=== PATIENT | female | born 1995 | race Caucasian/White ===

== ENCOUNTER 2016-08-22 09:03 | Emergency (ER) | payer MEDICAID ==
[2016-08-22 09:15] VITALS: BP 124/74
[2016-08-22] MEDS ORDERED: Sodium Chloride 0.9% 1,000 ML IV SCH (09:45)
--- NOTE | 2016-08-22 09:48 | EDM.PDOC ---
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 She has not had spotting. She thinks she is about 10 weeks preg. Onset: Today Duration: Hour(s): Location: Reports: Abdomen Associated Symptoms: Reports: No Other Symptoms, Other (pt usually vomits once or twice daily. 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 - Past Surgical History Female Surgical History: Reports: D&C Social & Family History - Tobacco Use Smoking Status *Q: Current Every Day Smoker Years of Tobacco use: 6 Packs/Tins Daily: 0.5 - Caffeine Use Caffeine Use: Reports: Soda - Alcohol Use Days Per Week of Alcohol Use: 0 - Recreational Drug Use Recreational Drug Use: No ED ROS GENERAL - Review of Systems Review Of Systems: See Below Constitutional: Reports: No Symptoms HEENT: Reports: No Symptoms Respiratory: Reports: No Symptoms Cardiovascular: Reports: No Symptoms Endocrine: Reports: No Symptoms GI/Abdominal: Reports: Other ( crampy lower abdomanal pain.) : Reports: No Symptoms Musculoskeletal: Reports: No Symptoms Skin: Reports: No Symptoms Neurological: Reports: No Symptoms Psychiatric: Reports: No Symptoms ED EXAM - Physical Exam Exam: See Below Text/Narrative:: pt arrived with pain in the lower abdoman. She is having crampy abdomanal pain. She has not had spotting. Exam Limited By: No Limitations General Appearance: Alert, Anxious, Mild Distress Ears: Normal TMs Nose: Normal Inspection Throat/Mouth: Normal Inspection Head: Atraumatic Neck: Normal Inspection Respiratory/Chest: No Respiratory Distress Cardiovascular: Regular Rate, Rhythm GI/Abdominal: Other ( cramping in the lower abdoman. no heart tones were heard. ) Rectal Exam: Deferred Extremities: Normal Inspection Neurological: Alert, Oriented, Other ( very upset. ) Course - Vital Signs Last Recorded V/S: Last Vital Signs Temp 36.8 C 08/22/16 09:16 Pulse 89 08/22/16 09:16 Resp 14 08/22/16 09:16 BP 124/74 08/22/16 09:16 Pulse Ox 98 08/22/16 09:16 - Orders/Labs/Meds Orders: Active Orders 24 hr Category Date Time Status OB 1st Tri Sgl 1st Gest [US] Stat Exams 08/22/16 09:41 Ordered OB Transvaginal [US] Stat Exams 08/22/16 09:41 Ordered Sodium Chloride 0.9% [Normal Saline] 1,000 ml Med 08/22/16 09:45 Active IV ASDIRECTED Medication Orders Sodium Chloride (Normal Saline) 1,000 mls @ 999 mls/hr IV ASDIRECTED [facility] Last Admin: 08/22/16 10:12 Dose: 999 mls/hr Labs: Laboratory Tests 08/22/16 08/22/16 08/22/16 Range/Units 09:50 09:50 09:54 WBC 11.3 H (4.5-11.0) K/uL RBC 4.50 (3.30-5.50) M/uL Hgb 12.7 (12.0-15.0) g/dL Hct 38.6 (36.0-48.0) % MCV 86 (80-98) fL MCH 28 (27-31) pg MCHC 33 (32-36) % Plt Count 228 (150-400) K/uL Neut % (Auto) 70 H (36-66) % Lymph % (Auto) 22 L (24-44) % [place] % (Auto) 7 H (2-6) % Eos % (Auto) 0 L (2-4) % Baso % (Auto) 0 (0-1) % Sodium 136 L (140-148) mmol/L Potassium 4.3 (3.6-5.2) mmol/L Chloride 102 (100-108) mmol/L Carbon Dioxide 29 (21-32) mmol/L Anion Gap 9.3 (5.0-14.0) mmol/L BUN 9 (7-18) mg/dL Creatinine 0.7 (0.6-1.0) mg/dL Est Cr Clr Drug Dosing 108.86 mL/min Estimated GFR (MDRD) > 60 (>60) Glucose 91 (74-106) mg/dL Calcium 9.0 (8.5-10.1) mg/dL Total Bilirubin 0.3 (0.2-1.0) mg/dL AST 17 (15-37) U/L ALT 17 (12-78) U/L Alkaline Phosphatase 59 (46-116) U/L Total Protein 7.4 (6.4-8.2) g/dL Albumin 3.4 (3.4-5.0) g/dL Globulin 4.0 H (2.3-3.5) g/dL Albumin/Globulin Ratio 0.9 L (1.2-2.2) HCG, Quant 6242 H (0-6) mIU/mL Urine Color Urine Appearance Urine pH (4.5-8.0) Ur Specific [place] (1.008-1.030) Urine Protein (NEGATIVE) mg/dL Urine Glucose (UA) (NEGATIVE) mg/dL Urine Ketones (NEGATIVE) mg/dL Urine Occult Blood (NEGATIVE) Urine Nitrite (NEGATIVE) Urine Bilirubin (NEGATIVE) Urine Urobilinogen (NORMAL) mg/dL Ur Leukocyte Esterase (NEGATIVE) Urine RBC (0-5) Urine WBC (0-5) Ur Epithelial Cells Amorphous Sediment Urine Bacteria Urine Mucus 08/22/16 Range/Units 10:59 WBC (4.5-11.0) K/uL RBC (3.30-5.50) M/uL Hgb (12.0-15.0) g/dL Hct (36.0-48.0) % MCV (80-98) fL MCH (27-31) pg MCHC (32-36) % Plt Count (150-400) K/uL Neut % (Auto) (36-66) % Lymph % (Auto) (24-44) % [place] % (Auto) (2-6) % Eos % (Auto) (2-4) % Baso % (Auto) (0-1) % Sodium (140-148) mmol/L Potassium (3.6-5.2) mmol/L Chloride (100-108) mmol/L Carbon Dioxide (21-32) mmol/L Anion Gap (5.0-14.0) mmol/L BUN (7-18) mg/dL Creatinine (0.6-1.0) mg/dL Est Cr Clr Drug Dosing mL/min Estimated GFR (MDRD) (>60) Glucose (74-106) mg/dL Calcium (8.5-10.1) mg/dL Total Bilirubin (0.2-1.0) mg/dL AST (15-37) U/L ALT (12-78) U/L Alkaline Phosphatase (46-116) U/L Total Protein (6.4-8.2) g/dL Albumin (3.4-5.0) g/dL Globulin (2.3-3.5) g/dL Albumin/Globulin Ratio (1.2-2.2) HCG, Quant (0-6) mIU/mL Urine Color Yellow Urine Appearance Clear Urine pH 7.0 (4.5-8.0) Ur Specific [place] 1.005 L (1.008-1.030) Urine Protein Negative (NEGATIVE) mg/dL Urine Glucose (UA) Normal (NEGATIVE) mg/dL Urine Ketones Negative (NEGATIVE) mg/dL Urine Occult Blood Negative (NEGATIVE) Urine Nitrite Negative (NEGATIVE) Urine Bilirubin Negative (NEGATIVE) Urine Urobilinogen Normal (NORMAL) mg/dL Ur Leukocyte Esterase Negative (NEGATIVE) Urine RBC 0-5 (0-5) Urine WBC 0-5 (0-5) Ur Epithelial Cells Few Amorphous Sediment Not seen Urine Bacteria Not seen Urine Mucus Not seen Meds: Medications Generic Name Dose Route Start Last Admin Trade Name Freq PRN Reason Stop Dose Admin Sodium Chloride 1,000 mls @ 999 mls/hr 08/22/16 09:45 08/22/16 10:12 Normal Saline IV 999 mls/hr ASDIRECTED [facility] Administration - Re-Assessments/Exams Free Text/Narrative Re-Assessment/Exam: 08/22/16 11:13 This is the second preg for the pt. The first she miscarried at about 6 weeks. Her us revealed only a preg that progressed to about 6 weeks. There is no heart activity. 08/22/16 11:15 Her Serum Hcg is only 6000 and should be about twice that. Departure - Departure Time of Disposition: 11:16 Disposition: Home, Self-Care 01 Condition: Fair Clinical Impression: Miscarriage, threatened, early - Discharge Information Forms: ED Department Discharge Care Plan Goals: Us shows a preg that progressed to 6 weeks with no heart tones,give pt empty arms book, appt with her provider Jalyn Lowe. in next 2-3 days, rtc if bleeding becomes heavy , norco 5/325 q6h prn for pain. - My Orders Last 24 Hours: My Active Orders 08/22/16 09:41 OB 1st Tri Sgl 1st Gest [US] Stat OB Transvaginal [US] Stat 08/22/16 09:45 Sodium Chloride 0.9% [Normal Saline] 1,000 ml IV ASDIRECTED - Assessment/Plan Last 24 Hours: My Active Orders 08/22/16 09:41 OB 1st Tri Sgl 1st Gest [US] Stat OB Transvaginal [US] Stat 08/22/16 09:45 Sodium Chloride 0.9% [Normal Saline] 1,000 ml IV ASDIRECTED
--- NOTE | 2016-08-22 11:46 | US ---
OB ultrasound. Findings: Comparison: Report 07/25/2016. Findings: [place]-rump length measures 5 mm. This would correlate to 6 weeks 3 days gestation. No feta l heart tones. No color Doppler as well of the heart. Enlarged gestational sac measuring up to 25 mm . Ovaries are unremarkable. Impression: 1. No heart tones. [place]-rump length at 5 mm. Findings most suggestive of a demise.
== END 2016-08-22 11:42 | disposition home or self-care (01) ==
LOC: JP.ED 09:03
DX: O20.0 Threatened abortion (principal); Z3A.10 10 weeks gestation of pregnancy; O99.331 Smoking (tobacco) complicating pregnancy, first trimester; F17.210 Nicotine dependence, cigarettes, uncomplicated; Z79.899 Other long term (current) drug therapy; Z91.09 Other allergy status, other than to drugs and biological substances
CPT/HCPCS: 36415; 76801; 76817; 80053; 81001; 84702; 85025; 96360; 96361; 99284; J7040

== ENCOUNTER 2017-05-31 16:32 | Emergency (ER) | payer MEDICAID ==
--- NOTE | 2017-05-31 18:13 | EDM.PDOC ---
ED HPI GENERAL MEDICAL PROBLEM - General Chief Complaint: Chest Pain Stated Complaint: CHEST PAIN Time Seen by Provider: 05/31/17 18:07 Source of Information: Reports: Patient, RN Notes Reviewed History Limitations: Reports: No Limitations - History of Present Illness INITIAL COMMENTS - FREE TEXT/NARRATIVE: 21-year-old female presents to the emergency department day complaint of chest pain, she states he's had chest pain for 2 days yesterday was constant today is intermittent she rates pain 4 out of 10 try Tylenol with no relief was nauseated and diaphoretic yesterday but none of those symptoms today no history of heart issues Left Chest Pain Score (Numeric/FACES): 4 - Related Data Allergies Allergy/AdvReac Type Severity Reaction Status Date / Time nickel Allergy Rash Verified 10/19/14 23:14 Home Meds: Home Meds Albuterol [Ventolin HFA] 2 puff PO QID PRN 10/19/14 [History] Past Medical History Respiratory History: Reports: Bronchitis, Recurrent 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: , 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 - Past Surgical History Female Surgical History: Reports: D&C Social & Family History - Tobacco Use Smoking Status *Q: Current Every Day Smoker Years of Tobacco use: 4 Packs/Tins Daily: 0.5 - Caffeine Use Caffeine Use: Reports: Coffee, Soda, Tea - Alcohol Use Days Per Week of Alcohol Use: 0 - Recreational Drug Use Recreational Drug Use: No ED ROS GENERAL - Review of Systems Review Of Systems: See Below Constitutional: Reports: Diaphoresis HEENT: Reports: No Symptoms Respiratory: Denies: Shortness of Breath Cardiovascular: Reports: Chest Pain GI/Abdominal: Reports: Nausea : Reports: No Symptoms Musculoskeletal: Reports: No Symptoms Skin: Reports: No Symptoms Neurological: Reports: No Symptoms ED EXAM, GENERAL - Physical Exam Exam: See Below Exam Limited By: No Limitations General Appearance: Alert, WD/WN, No Apparent Distress Eye Exam: Bilateral Eye: Normal Inspection Head: Atraumatic, Normocephalic Neck: Normal Inspection, Supple, Non-Tender, Full Range of Motion Respiratory/Chest: No Respiratory Distress, Lungs Clear, Normal Breath Sounds, No Accessory Muscle Use, Chest Non-Tender Cardiovascular: Regular Rate, Rhythm, No Murmur GI/Abdominal: Soft, Non-Tender Course - Vital Signs Last Recorded V/S: Last Vital Signs Temp 98.9 F 05/31/17 16:53 Pulse 72 05/31/17 19:02 Resp 13 05/31/17 19:02 BP 118/62 05/31/17 19:02 Pulse Ox 98 05/31/17 19:02 - Orders/Labs/Meds Orders: Active Orders 24 hr Category Date Time Status Cardiac Monitoring [RC] .As Directed Care 05/31/17 18:11 Active EKG Documentation Completion [RC] ASDIRECTED Care 05/31/17 18:11 Active Chest 2V [CR] Stat Exams 05/31/17 18:11 Taken EKG 12 Lead [EK] Stat Ther 05/31/17 18:11 Ordered Labs: Laboratory Tests 05/31/17 05/31/17 Range/Units 18:11 18:11 WBC 11.8 H (4.5-11.0) K/uL RBC 4.39 (3.30-5.50) M/uL Hgb 11.3 L (12.0-15.0) g/dL Hct 35.0 L (36.0-48.0) % MCV 80 (80-98) fL MCH 26 L (27-31) pg MCHC 32 (32-36) % Plt Count 266 (150-400) K/uL Neut % (Auto) 60 (36-66) % Lymph % (Auto) 30 (24-44) % [place] % (Auto) 7 H (2-6) % Eos % (Auto) 2 (2-4) % Baso % (Auto) 0 (0-1) % Sodium 141 (140-148) mmol/L Potassium 4.1 (3.6-5.2) mmol/L Chloride 104 (100-108) mmol/L Carbon Dioxide 27 (21-32) mmol/L Anion Gap 10.1 (5.0-14.0) mmol/L BUN 14 D (7-18) mg/dL Creatinine 0.7 (0.6-1.0) mg/dL Est Cr Clr Drug Dosing 112.47 mL/min Estimated GFR (MDRD) > 60 (>60) Glucose 89 (74-106) mg/dL Calcium 8.8 (8.5-10.1) mg/dL Total Bilirubin 0.1 L D (0.2-1.0) mg/dL AST 14 L (15-37) U/L ALT 22 (12-78) U/L Alkaline Phosphatase 83 (46-116) U/L Troponin I < 0.017 (0.000-0.056) ng/mL Total Protein 6.9 (6.4-8.2) g/dL Albumin 3.4 (3.4-5.0) g/dL Globulin 3.5 (2.3-3.5) g/dL Albumin/Globulin Ratio 1.0 L (1.2-2.2) Lipase 169 (73-393) U/L Departure - Departure Time of Disposition: 19:16 Disposition: Home, Self-Care 01 Condition: Good Clinical Impression: Chest wall pain Referrals: PCP,None [Primary Care Provider] - Forms: ED Department Discharge Additional Instructions: Try nonsteroidal anti-inflammatories as needed for pain control, Please followup with your primary care provider in 3-5 days if not better, please call return to the emergency department with worsening of symptoms. - My Orders Last 24 Hours: My Active Orders 05/31/17 18:11 Cardiac Monitoring [RC] .As Directed EKG Documentation Completion [RC] ASDIRECTED Chest 2V [CR] Stat EKG 12 Lead [EK] Stat - Assessment/Plan Last 24 Hours: My Active Orders 05/31/17 18:11 Cardiac Monitoring [RC] .As Directed EKG Documentation Completion [RC] ASDIRECTED Chest 2V [CR] Stat EKG 12 Lead [EK] Stat Plan: Assessment Acuity = acute Site and laterality = chest wall pain Etiology = unclear etiology Manifestations = none Location of injury = Home Lab values = CBC, CMP, troponin, EKG reveals sinus rhythm no ST elevations or depressions she does have a prolonged [place] interval consistent with first-degree block, chest x-ray I did review films myself I cannot appreciate any acute process, the official read from radiology is pending Plan Recommend nonsteroidal anti-inflammatories follow-up primary care 3-5 days for reevaluation if not better This note was dictated using [employer] voice recognition software please call with any questions on syntax or jann.
[2017-05-31 19:02] VITALS: BP 118/62
--- NOTE | 2017-06-01 11:21 | CR ---
Chest 2V HISTORY: No Clinical Info FINDINGS: Heart size within normal limits. Pulmonary vasculature within normal limits. No evidence fo r focal consolidation or cardiopulmonary process. IMPRESSION: No radiographic evidence for acute cardiopulmonary process.
== END 2017-05-31 19:32 | disposition home or self-care (01) ==
LOC: JP.ED 16:32
DX: R07.89 Other chest pain (principal); F17.210 Nicotine dependence, cigarettes, uncomplicated; Z91.048 Other nonmedicinal substance allergy status
CPT/HCPCS: 36415; 71046; 71046-26; 80053; 83690; 84484; 85025; 93005; 99285-25

== ENCOUNTER 2017-09-03 18:15 | Emergency (ER) | payer MEDICAID ==
--- NOTE | 2017-09-03 19:34 | EDM.PDOC ---
ED HPI GENERAL MEDICAL PROBLEM - General Chief Complaint: Abdominal Pain Stated Complaint: R ABDOMINAL PAIN Time Seen by Provider: 09/03/17 19:05 Source of Information: Reports: Patient History Limitations: Reports: No Limitations - History of Present Illness INITIAL COMMENTS - FREE TEXT/NARRATIVE: 21 yo female present with 24 hour hx of right sided ABD pain. initially umbilical pain last evening progressed to right upper quad pain. eating and drinking normally. denies nausea. did have one episode of diarrhea this AM but last BM was soft and solid prior to arrival. LMP was 2 days ago and light after 2 months without. has taken multiple home preg all neg. afebrile. 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 Musculoskeletal History: Reports: Fracture Neurological History: Reports: Headaches, Chronic - Infectious Disease History Infectious Disease History: Reports: Chicken Pox - Past Surgical History HEENT Surgical History: Reports: Oral Surgery Female Surgical History: Reports: D&C Social & Family History - Tobacco Use Smoking Status *Q: Current Every Day Smoker Years of Tobacco use: 5 Packs/Tins Daily: 1 - Caffeine Use Caffeine Use: Reports: Soda - Recreational Drug Use Recreational Drug Use: No ED ROS GENERAL - Review of Systems Review Of Systems: See Below Constitutional: Denies: Fever, Chills, Malaise Respiratory: Denies: Shortness of Breath, Wheezing Cardiovascular: Denies: Chest Pain GI/Abdominal: Reports: Abdominal Pain, Diarrhea. Denies: Anorexia, Decreased Appetite, Nausea, Vomiting Skin: Denies: Rash ED EXAM, GI/ABD - Physical Exam Exam: See Below Exam Limited By: No Limitations General Appearance: Alert, WD/WN, No Apparent Distress Neck: Normal Inspection, Supple, Non-Tender, Full Range of Motion Respiratory/Chest: No Respiratory Distress, Lungs Clear, Normal Breath Sounds, No Accessory Muscle Use, Chest Non-Tender. No: Crackles, Rhonchi, Wheezing Cardiovascular: Regular Rate, Rhythm, No Edema GI/Abdominal Exam: Normal Bowel Sounds (right sided), Soft, Tender Psychiatric: Normal Affect, Normal Mood Skin Exam: Warm, Dry, Intact. No: Rash Course - Vital Signs Last Recorded V/S: Last Vital Signs Temp 35.9 C 09/03/17 21:32 Pulse 68 09/03/17 21:32 Resp 17 09/03/17 21:32 BP 129/67 09/03/17 21:32 Pulse Ox 97 09/03/17 21:32 - Orders/Labs/Meds Orders: Active Orders 24 hr Category Date Time Status Abdomen Pelvis w Cont [CT] Stat Exams 09/03/17 20:23 Taken Iopamidol [Isovue-300 (61%)] Med 09/03/17 20:30 Active 100 ml IV . DIRECTED Sodium Chloride 0.9% [Normal Saline] 1,000 ml Med 09/03/17 20:30 Active IV ASDIRECTED Sodium Chloride 0.9% [Normal Saline] 100 ml Med 09/03/17 20:30 Active IV ASDIRECTED Medication Orders Sodium Chloride (Normal Saline) 1,000 mls @ 500 mls/hr IV ASDIRECTED [facility] Last Admin: 09/03/17 21:25 Dose: 500 mls/hr Sodium Chloride (Normal Saline) 100 mls @ 3 mls/sec IV ASDIRECTED [facility] Last Admin: 09/03/17 21:09 Dose: 3 mls/sec Iopamidol (Isovue-300 (61%)) 100 ml IV . [facility]ED [facility] Last Admin: 09/03/17 21:09 Dose: 100 ml Labs: Laboratory Tests 09/03/17 09/03/17 09/03/17 Range/Units 19:38 19:38 19:38 WBC 12.9 H (4.5-11.0) K/uL RBC 4.42 (3.30-5.50) M/uL Hgb 11.7 L (12.0-15.0) g/dL Hct 36.0 (36.0-48.0) % MCV 81 (80-98) fL MCH 27 (27-31) pg MCHC 33 (32-36) % Plt Count 235 (150-400) K/uL Neut % (Auto) 62 (36-66) % Lymph % (Auto) 27 (24-44) % [place] % (Auto) 7 H (2-6) % Eos % (Auto) 3 (2-4) % Baso % (Auto) 0 (0-1) % Sodium 138 L (140-148) mmol/L Potassium 3.8 (3.6-5.2) mmol/L Chloride 103 (100-108) mmol/L Carbon Dioxide 28 (21-32) mmol/L Anion Gap 10.8 (5.0-14.0) mmol/L BUN 12 (7-18) mg/dL Creatinine 0.7 (0.6-1.0) mg/dL Est Cr Clr Drug Dosing 112.47 mL/min Estimated GFR (MDRD) > 60 (>60) Glucose 136 H (74-106) mg/dL Calcium 8.7 (8.5-10.1) mg/dL Total Bilirubin 0.2 D (0.2-1.0) mg/dL AST 14 L (15-37) U/L ALT 24 (12-78) U/L Alkaline Phosphatase 81 (46-116) U/L Total Protein 6.5 (6.4-8.2) g/dL Albumin 3.0 L (3.4-5.0) g/dL Globulin 3.5 (2.3-3.5) g/dL Albumin/Globulin Ratio 0.9 L (1.2-2.2) HCG, Qual Negative Urine Color Urine Appearance Urine pH (4.5-8.0) Ur Specific [place] (1.008-1.030) Urine Protein (NEGATIVE) mg/dL Urine Glucose (UA) (NEGATIVE) mg/dL Urine Ketones (NEGATIVE) mg/dL Urine Occult Blood (NEGATIVE) Urine Nitrite (NEGATIVE) Urine Bilirubin (NEGATIVE) Urine Urobilinogen (NORMAL) mg/dL Ur Leukocyte Esterase (NEGATIVE) Urine RBC (0-5) Urine WBC (0-5) Ur Epithelial Cells Amorphous Sediment Urine Bacteria Urine Mucus 09/03/17 Range/Units 20:39 WBC (4.5-11.0) K/uL RBC (3.30-5.50) M/uL Hgb (12.0-15.0) g/dL Hct (36.0-48.0) % MCV (80-98) fL MCH (27-31) pg MCHC (32-36) % Plt Count (150-400) K/uL Neut % (Auto) (36-66) % Lymph % (Auto) (24-44) % [place] % (Auto) (2-6) % Eos % (Auto) (2-4) % Baso % (Auto) (0-1) % Sodium (140-148) mmol/L Potassium (3.6-5.2) mmol/L Chloride (100-108) mmol/L Carbon Dioxide (21-32) mmol/L Anion Gap (5.0-14.0) mmol/L BUN (7-18) mg/dL Creatinine (0.6-1.0) mg/dL Est Cr Clr Drug Dosing mL/min Estimated GFR (MDRD) (>60) Glucose (74-106) mg/dL Calcium (8.5-10.1) mg/dL Total Bilirubin (0.2-1.0) mg/dL AST (15-37) U/L ALT (12-78) U/L Alkaline Phosphatase (46-116) U/L Total Protein (6.4-8.2) g/dL Albumin (3.4-5.0) g/dL Globulin (2.3-3.5) g/dL Albumin/Globulin Ratio (1.2-2.2) HCG, Qual Urine Color Yellow Urine Appearance Clear Urine pH 6.0 (4.5-8.0) Ur Specific [place] 1.025 (1.008-1.030) Urine Protein Negative (NEGATIVE) mg/dL Urine Glucose (UA) Normal (NEGATIVE) mg/dL Urine Ketones Negative (NEGATIVE) mg/dL Urine Occult Blood Negative (NEGATIVE) Urine Nitrite Negative (NEGATIVE) Urine Bilirubin Negative (NEGATIVE) Urine Urobilinogen Normal (NORMAL) mg/dL Ur Leukocyte Esterase Negative (NEGATIVE) Urine RBC 0-5 (0-5) Urine WBC 0-5 (0-5) Ur Epithelial Cells Moderate Amorphous Sediment Few Urine Bacteria Rare Urine Mucus Few Meds: Medications Generic Name Dose Route Start Last Admin Trade Name Freq PRN Reason Stop Dose Admin Sodium Chloride 1,000 mls @ 500 mls/hr 09/03/17 20:30 09/03/17 21:25 Normal Saline IV 500 mls/hr ASDIRECTED [facility] Administration Sodium Chloride 100 mls @ 3 mls/sec 09/03/17 20:30 09/03/17 21:09 Normal Saline IV 3 mls/sec ASDIRECTED [facility] Administration Iopamidol 100 ml 09/03/17 20:30 09/03/17 21:09 Isovue-300 (61%) IV 100 ml . DIRECTED [facility] Administration Discontinued Medications Generic Name Dose Route Start Last Admin Trade Name Caryl PRN Reason Stop Dose Admin Ketorolac Tromethamine 30 mg 09/03/17 22:11 09/03/17 22:21 Toradol IVPUSH 09/03/17 22:12 30 mg ONETIME ONE Administration Morphine Sulfate 1 mg 09/03/17 20:24 09/03/17 20:42 Morphine IVPUSH 09/03/17 20:25 1 mg ONETIME ONE Administration Morphine Sulfate 1 mg 09/03/17 22:08 09/03/17 22:21 Morphine IVPUSH 09/03/17 22:09 1 mg ONETIME ONE Administration Ondansetron HCl 4 mg 09/03/17 20:24 09/03/17 20:42 Zofran IVPUSH 09/03/17 20:25 4 mg ONETIME ONE Administration - Re-Assessments/Exams Free Text/Narrative Re-Assessment/Exam: 09/03/17 22:46 CT scan normal. pain improved but not relieved IV pain medication. Departure - Departure Time of Disposition: 22:46 Disposition: Home, Self-Care 01 Condition: Good Clinical Impression: Gastroenteritis, RUQ abdominal pain - Discharge Information Instructions: Abdominal Pain, Adult, [id number] Referrals: Portia Irene MD [Primary Care Provider] - Forms: ED Department Discharge Additional Instructions: rest advance diet as tolerated follow-up with primary care or return to ER with new or worsening symptoms - My Orders Last 24 Hours: My Active Orders 09/03/17 20:23 Abdomen Pelvis w Cont [CT] Stat 09/03/17 20:30 Iopamidol [Isovue-300 (61%)] 100 ml IV . DIRECTED Sodium Chloride 0.9% [Normal Saline] 1,000 ml IV ASDIRECTED Sodium Chloride 0.9% [Normal Saline] 100 ml IV ASDIRECTED - Assessment/Plan Last 24 Hours: My Active Orders 09/03/17 20:23 Abdomen Pelvis w Cont [CT] Stat 09/03/17 20:30 Iopamidol [Isovue-300 (61%)] 100 ml IV . DIRECTED Sodium Chloride 0.9% [Normal Saline] 1,000 ml IV ASDIRECTED Sodium Chloride 0.9% [Normal Saline] 100 ml IV ASDIRECTED
[2017-09-03] MEDS ORDERED: Morphine 2 MG/ML Syringe IVPUSH ONE ×2 (20:24→22:08)
[2017-09-03] MEDS ORDERED: Ondansetron 4 MG/2 ML SDV IVPUSH ONE (20:24)
[2017-09-03] MEDS ORDERED: Iopamidol 612 MG/ML 100 ML Bottle IV SCH (20:30)
[2017-09-03] MEDS ORDERED: Sodium Chloride 0.9% 1,000 ML IV SCH (20:30)
[2017-09-03] MEDS ORDERED: Sodium Chloride 0.9% 100 ML IV SCH (20:30)
[2017-09-03 21:34] VITALS: BP 129/67
[2017-09-03] MEDS ORDERED: Ketorolac 30 MG/ML SDV IVPUSH ONE (22:11)
== END 2017-09-03 22:59 | disposition home or self-care (01) ==
LOC: JP.ED 18:15
DX: K52.9 Noninfective gastroenteritis and colitis, unspecified (principal); F17.210 Nicotine dependence, cigarettes, uncomplicated; Z91.048 Other nonmedicinal substance allergy status
CPT/HCPCS: 36415; 74177; 80053; 81001; 84703; 85025; 96374; 96375; 96376; 99284; J1885; J2270; J2405; J7030; Q9967

== ENCOUNTER 2018-03-25 10:03 | Emergency (ER) | payer MEDICAID ==
[2018-03-25 10:22] VITALS: BP 131/76
--- NOTE | 2018-03-25 10:55 | EDM.PDOC ---
ED HPI GENERAL MEDICAL PROBLEM - General Chief Complaint: Respiratory Problem Stated Complaint: CHEST CONGESTION Time Seen by Provider: 03/25/18 10:51 Source of Information: Reports: Patient History Limitations: Reports: No Limitations - History of Present Illness INITIAL COMMENTS - FREE TEXT/NARRATIVE: pt has been ill for thepast 2-3 days. She spiked a temp to 101 this am. She has had chills and has had alot of chest congestion Onset: Other ( last 2-3 days. ) Duration: Hour(s): Location: Reports: Chest, Other (pt has a sore throat. 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 Musculoskeletal History: Reports: Fracture Neurological History: Reports: Headaches, Chronic - Infectious Disease History Infectious Disease History: Reports: Chicken Pox - Past Surgical History HEENT Surgical History: Reports: Oral Surgery Female Surgical History: Reports: D&C Social & Family History - Tobacco Use Smoking Status *Q: Current Every Day Smoker Years of Tobacco use: 5 Packs/Tins Daily: 0.5 - Caffeine Use Caffeine Use: Reports: Coffee, Soda, Tea - Recreational Drug Use Recreational Drug Use: No ED ROS GENERAL - Review of Systems Review Of Systems: See Below Constitutional: Reports: Fever, Chills, Weakness HEENT: Reports: Throat Pain Respiratory: Reports: Cough, Other (pt is having marked coughing spasms and is raising yellow to green sputum. ) Cardiovascular: Reports: No Symptoms Endocrine: Reports: No Symptoms GI/Abdominal: Reports: No Symptoms, Other (pt did cough until she vomited this am. She did have a temp of 102 this am. ) : Reports: No Symptoms Musculoskeletal: Reports: No Symptoms Skin: Reports: No Symptoms Neurological: Reports: No Symptoms ED EXAM, GENERAL - Physical Exam Exam: See Below Free Text/Narrative:: pt arrived with sob, cough and raises alot of yellow sputum.She is having marked coughing spasms. Exam Limited By: No Limitations General Appearance: Alert, Anxious, Mild Distress Ears: Normal TMs Nose: Normal Inspection Throat/Mouth: Normal Inspection Head: Atraumatic Neck: Normal Inspection Respiratory/Chest: No Respiratory Distress, Rhonchi, Wheezing Cardiovascular: Regular Rate, Rhythm GI/Abdominal: Soft, Non-Tender (Female) Exam: Deferred Rectal (Female) Exam: Deferred Back Exam: Normal Inspection Extremities: Normal Inspection Neurological: Alert, Oriented, Normal Cognition Course - Vital Signs Last Recorded V/S: Last Vital Signs Temp 36.5 C 03/25/18 10:20 Pulse 94 03/25/18 10:20 Resp 18 03/25/18 10:20 BP 131/76 03/25/18 10:20 Pulse Ox 97 03/25/18 10:20 - Orders/Labs/Meds Orders: Active Orders 24 hr Category Date Time Status RT Aerosol Therapy [RC] ASDIRECTED Care 03/25/18 11:23 Active Chest 2V [CR] Stat Exams 03/25/18 11:22 Ordered CULTURE STREP A CONFIRMATION [] Stat Lab 03/25/18 10:52 Results STREP SCRN A RAPID W CULT CONF [] Stat Lab 03/25/18 10:52 Results Labs: Laboratory Tests 03/25/18 Range/Units 10:50 WBC 9.3 (4.5-11.0) K/uL RBC 4.83 (3.30-5.50) M/uL Hgb 12.9 (12.0-15.0) g/dL Hct 39.7 (36.0-48.0) % MCV 82 (80-98) fL MCH 27 (27-31) pg MCHC 33 (32-36) % Plt Count 225 (150-400) K/uL Neut % (Auto) 77 H (36-66) % Lymph % (Auto) 12 L (24-44) % [place] % (Auto) 10 H (2-6) % Eos % (Auto) 0 L (2-4) % Baso % (Auto) 0 (0-1) % Meds: Medications Discontinued Medications Generic Name Dose Route Start Last Admin Trade Name Freq PRN Reason Stop Dose Admin Albuterol 2.5 mg 03/25/18 11:23 03/25/18 11:32 Proventil Neb Soln NEB 03/25/18 11:24 2.5 mg ONETIME ONE Administration - Re-Assessments/Exams Free Text/Narrative Re-Assessment/Exam: 03/25/18 12:26 pt had a neg strept and neg influ. Her wbc was not markedly elevated. She had a chest xray which did not show a infiltrate. Departure - Departure Time of Disposition: 12:10 Disposition: Home, Self-Care 01 Condition: Fair Clinical Impression: Bronchitis - Discharge Information Instructions: Acute Bronchitis, Adult, [id number] Referrals: PCP,None [Primary Care Provider] - Forms: ED Department Discharge Care Plan Goals: pudh fluids, no work for the next 2 days. use albuterol inhaler that she has at home qid, cool mist humidifier, zithromax 500mg now and then 250 for 6 days, robitussin ac 1-2 tsp q6h prn for cough. - My Orders Last 24 Hours: My Active Orders 03/25/18 10:52 CULTURE STREP A CONFIRMATION [RM] Stat STREP SCRN A RAPID W CULT CONF [RM] Stat 03/25/18 11:22 Chest 2V [CR] Stat 03/25/18 11:23 RT Aerosol Therapy [RC] ASDIRECTED - Assessment/Plan Last 24 Hours: My Active Orders 03/25/18 10:52 CULTURE STREP A CONFIRMATION [RM] Stat STREP SCRN A RAPID W CULT CONF [RM] Stat 03/25/18 11:22 Chest 2V [CR] Stat 03/25/18 11:23 RT Aerosol Therapy [RC] ASDIRECTED
[2018-03-25] MEDS: Albuterol 0.083% 2.5 MG/3 ML Neb Soln NEB ONE (11:32)
== END 2018-03-25 12:32 | disposition home or self-care (01) ==
LOC: JP.ED 10:03
DX: J40 Bronchitis, not specified as acute or chronic (principal); F17.210 Nicotine dependence, cigarettes, uncomplicated; Z91.048 Other nonmedicinal substance allergy status
CPT/HCPCS: 36415; 71046; 85025; 87081; 87430; 87804; 87804-59; 94640; 99285-25

== ENCOUNTER 2018-10-15 20:48 | Emergency (ER) | payer MEDICAID ==
[2018-10-15 21:21] VITALS: BP 135/83
[2018-10-15] MEDS ORDERED: Ibuprofen 600 MG Tab PO ONE (21:47)
--- NOTE | 2018-10-15 21:49 | EDM.PDOC ---
ED HPI GENERAL MEDICAL PROBLEM - General Stated Complaint: RI EAR Time Seen by Provider: 10/15/18 21:43 Source of Information: Reports: Patient History Limitations: Reports: No Limitations - History of Present Illness INITIAL COMMENTS - FREE TEXT/NARRATIVE: pt arrived with pain in the rt ear. She was baptized yesterday with a full emersion. Onset: Today, Other (pt started having pain in the ear today and also pain in front of the ear. ) Duration: Hour(s): Location: Reports: Face Associated Symptoms: Reports: Other ( pain in the rt ear. 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 Musculoskeletal History: Reports: Fracture Neurological History: Reports: Headaches, Chronic - Infectious Disease History Infectious Disease History: Reports: Chicken Pox - Past Surgical History HEENT Surgical History: Reports: Oral Surgery Female Surgical History: Reports: D&C Social & Family History - Caffeine Use Caffeine Use: Reports: Coffee, Soda, Tea ED ROS ENT - Review of Systems Review Of Systems: See Below Constitutional: Reports: No Symptoms HEENT: Reports: Ear Discharge, Ear Pain Respiratory: Reports: No Symptoms Cardiovascular: Reports: No Symptoms Endocrine: Reports: No Symptoms GI/Abdominal: Reports: No Symptoms : Reports: No Symptoms Musculoskeletal: Reports: No Symptoms Skin: Reports: No Symptoms ED EXAM, ENT - Physical Exam Exam: See Below Text/Narrative:: pt arrived with pain in the rt ear and pain in front of the rt ear. She had water in the ear from when she was baptized and she had a full emersion. Exam Limited By: No Limitations General Appearance: Alert, Anxious, Mild Distress Ears: Other ( there is pus like material in the canal, the canal is red, the drum reveals mild redness. ) Nose: Normal Inspection Mouth/Throat: Normal Inspection Head: Atraumatic, Other (pain in the tnj area) Neck: Normal Inspection Respiratory/Chest: No Respiratory Distress Cardiovascular: Regular Rate, Rhythm GI/Abdominal: Non-Tender (Female) Exam: Deferred Rectal (Female) Exam: Deferred Back: Normal Inspection Extremities: Normal Inspection Neurological: Alert, Oriented, Normal Cognition Course - Vital Signs Last Recorded V/S: Last Vital Signs Temp 36.2 C 10/15/18 21:20 Pulse 90 10/15/18 21:20 Resp 18 10/15/18 21:20 BP 135/83 10/15/18 21:20 Pulse Ox 98 10/15/18 21:20 - Orders/Labs/Meds Meds: Medications Discontinued Medications Generic Name Dose Route Start Last Admin Trade Name Freq PRN Reason Stop Dose Admin Ibuprofen 600 mg 10/15/18 21:47 Motrin PO 10/15/18 21:48 ONETIME ONE Departure - Departure Time of Disposition: 21:44 Disposition: Home, Self-Care 01 Condition: Fair Clinical Impression: Otitis media, Otitis externa - Discharge Information Referrals: PCP,None [Primary Care Provider] - Care Plan Goals: motrin 600mg q6h prn for pain, corticosporin ear drops tid, amoxicillin 500mg tid. recheck if not improving.
== END 2018-10-15 22:21 | disposition home or self-care (01) ==
LOC: JP.ED 20:48
DX: H66.91 Otitis media, unspecified, right ear (principal); H60.91 Unspecified otitis externa, right ear; J45.909 Unspecified asthma, uncomplicated; Z91.048 Other nonmedicinal substance allergy status; Z79.899 Other long term (current) drug therapy
CPT/HCPCS: 99282; A9270

== ENCOUNTER 2020-05-28 20:10 | Emergency (ER) | payer OTHER, MEDICAID ==
[2020-05-28 20:24] VITALS: BP 145/77; PULSE 86
[2020-05-28] MEDS ORDERED: Methocarbamol 500 MG Tab PO ONE (21:03)
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
== END 2020-05-28 21:18 | disposition home or self-care (01) ==
LOC: JP.ED 20:10
DX: S16.1XXA Strain of muscle, fascia and tendon at neck level, initial encounter (principal); S00.03XA Contusion of scalp, initial encounter; M25.511 Pain in right shoulder; J45.909 Unspecified asthma, uncomplicated; Z72.0 Tobacco use; Z79.899 Other long term (current) drug therapy; Z91.048 Other nonmedicinal substance allergy status; V49.49XA Driver injured in collision with other motor vehicles in traffic accident, initial encounter; Y92.410 Unspecified street and highway as the place of occurrence of the external cause
CPT/HCPCS: 99283; A9270

== ENCOUNTER 2021-02-07 12:18 | Emergency (ER) | payer MEDICAID, OTHER ==
--- NOTE | 2021-02-07 14:23 | EDM.PDOC ---
ED HPI GENERAL MEDICAL PROBLEM - General Chief Complaint: Headache Stated Complaint: MIGRAINE Time Seen by Provider: 02/07/21 14:22 Source of Information: Reports: Patient History Limitations: Reports: No Limitations - History of Present Illness INITIAL COMMENTS - FREE TEXT/NARRATIVE: pt arrived with a 6 day history of a headache over the top of her head. She has been nauseated but has not vomited. She has not been diagnosed with a migraine in the past. S. She has been lite sensitive. Onset: Gradual, Other ( Pt has had a headache for about 6 days. She does have a history of headaches that just go away with tylenol. ) Duration: Hour(s): Location: Reports: Head Associated Symptoms: Reports: No Other Symptoms Headache Pain Score (Numeric/FACES): 9 - Related Data Allergies Allergy/AdvReac Type Severity Reaction Status Date / Time nickel Allergy Rash Verified 02/07/21 13:36 Home Meds: Home Meds Albuterol [Ventolin HFA] 2 puff PO QID PRN 10/19/14 [History] methocarbamoL [Methocarbamol] 750 mg PO QID PRN #40 tablet 05/28/20 [Rx] metFORMIN [Glucophage] 500 tab PO DAILY 02/07/21 [History] Past Medical History - Past Health History Medical/Surgical History: Denies Medical/Surgical History HEENT History: Reports: Impaired Vision Respiratory History: Reports: Asthma, Bronchitis, Recurrent Other 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: , 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 Musculoskeletal History: Reports: Fracture Neurological History: Reports: Headaches, Chronic Endocrine/Metabolic History: Reports: Obesity/BMI 30+ - Infectious Disease History Infectious Disease History: Reports: Chicken Pox - Past Surgical History HEENT Surgical History: Reports: Oral Surgery Female Surgical History: Reports: D&C Social & Family History - Tobacco Use Tobacco Use Status *Q: Light Tobacco User Years of Tobacco use: 10 Packs/Tins Daily: 0.5 - Caffeine Use Caffeine Use: Reports: Coffee, Soda - Recreational Drug Use Recreational Drug Use: No ED ROS GENERAL - Review of Systems Review Of Systems: See Below Constitutional: Reports: No Symptoms HEENT: Reports: No Symptoms Respiratory: Reports: No Symptoms Cardiovascular: Reports: No Symptoms Endocrine: Reports: No Symptoms GI/Abdominal: Reports: No Symptoms : Reports: No Symptoms Musculoskeletal: Reports: Other ( neck tension) - Physical Exam Exam: See Below Text/Narrative:: pt arrived with aheadache which has been going on for about 6 days. This is the worse headache she has had. Exam Limited By: No Limitations General Appearance: Alert, Anxious, Other (pupils equal and reactive. ) Ears: Normal TMs Nose: Normal Inspection Throat/Mouth: Normal Inspection Head Exam: Atraumatic Neck: Normal Inspection Respiratory/Chest: No Respiratory Distress Cardiovascular: Regular Rate, Rhythm GI/Abdominal: Soft, Non-Tender (Female) Exam: Deferred Rectal (Female) Exam: Deferred Neuro Exam (Abbreviated): Alert, Oriented, Normal Cognition Back Exam: Normal Inspection Extremities: Normal Inspection Psychiatric: Anxious Course - Vital Signs Last Recorded V/S: Last Vital Signs Temp 36.8 C 02/07/21 13:35 Pulse 79 02/07/21 13:35 Resp 15 02/07/21 13:35 BP 132/80 02/07/21 13:35 Pulse Ox 99 02/07/21 13:35 - Orders/Labs/Meds Orders: Active Orders 24 hr Category Date Time Status Sodium Chloride 0.9% [Normal Saline] 1,000 ml Med 02/07/21 14:30 Active IV ASDIRECTED Medication Orders Sodium Chloride (Normal Saline) 1,000 mls @ 999 mls/hr IV ASDIRECTED TULIO Last Admin: 02/07/21 14:33 Dose: 999 mls/hr Documented by: SOPHIA Meds: Medications Generic Name Dose Route Start Last Admin Trade Name Freq PRN Reason Stop Dose Admin Sodium Chloride 1,000 mls @ 999 mls/hr 02/07/21 14:30 02/07/21 14:33 Normal Saline IV 999 mls/hr ASDIRECTED TULIO Administration Discontinued Medications Generic Name Dose Route Start Last Admin Trade Name Freq PRN Reason Stop Dose Admin Diphenhydramine HCl 50 mg 02/07/21 14:26 02/07/21 14:38 Diphenhydramine 50 Mg/Ml Sdv IVPUSH 02/07/21 14:27 50 mg ONETIME ONE Administration Hydromorphone HCl 0.5 mg 02/07/21 15:32 Hydromorphone 0.5 Mg/0.5 Ml Syringe IVPUSH 02/07/21 15:33 ONETIME ONE Ketorolac Tromethamine 30 mg 02/07/21 14:25 02/07/21 14:42 Ketorolac 30 Mg/Ml Sdv IVPUSH 02/07/21 14:26 30 mg ONETIME ONE Administration Prochlorperazine Edisylate 10 mg 02/07/21 14:25 02/07/21 14:39 Prochlorperazine 10 Mg/2 Ml Sdv IVPUSH 02/07/21 14:26 10 mg ONETIME ONE Administration - Re-Assessments/Exams Free Text/Narrative Re-Assessment/Exam: 02/07/21 15:24 pt had a cat scan of the head which was normal. 02/07/21 15:34 pt was given torodol, compazine, benadryl and did respond to that. Departure - Departure Time of Disposition: 15:34 Disposition: Home, Self-Care 01 Condition: Fair Clinical Impression: Vascular headache - Discharge Information Referrals: Shanthi Babin PA-C [Primary Care Provider] - Forms: ED Department Discharge Care Plan Goals: low activity. sleep if possible. See own Dr and discuss the possibility of a migraine diagnosis. Sepsis Event Note (ED) - Evaluation Sepsis Screening Result: No Definite Risk - Focused Exam Vital Signs: Vital Signs Temp Pulse Resp BP Pulse Ox 02/07/21 13:35 36.8 C 79 15 132/80 99 02/07/21 13:24 36.8 C 79 15 132/80 99 - My Orders Last 24 Hours: My Active Orders 02/07/21 14:30 Sodium Chloride 0.9% [Normal Saline] 1,000 ml IV ASDIRECTED - Assessment/Plan Last 24 Hours: My Active Orders 02/07/21 14:30 Sodium Chloride 0.9% [Normal Saline] 1,000 ml IV ASDIRECTED
[2021-02-07] MEDS ORDERED: Prochlorperazine 10 MG/2 ML SDV IVPUSH ONE (14:25)
[2021-02-07] MEDS ORDERED: Ketorolac 30 MG/ML SDV IVPUSH ONE (14:25)
[2021-02-07] MEDS ORDERED: diphenhydrAMINE 50 MG/ML SDV IVPUSH ONE (14:26)
[2021-02-07] MEDS ORDERED: Sodium Chloride 0.9% 1,000 ML IV SCH (14:30)
--- NOTE | 2021-02-07 15:16 | CRLCT ---
For Patients: As a result of the Century Cures Act, medical imaging exams and procedure reports are released immediately into your electronic medical record. You may view this report before your referring provider. If you have questions, please contact your health care provider. INDICATION: Headache COMPARISON: None TECHNIQUE: CT examination of the head was performed as axial sections without intravenous contrast. Images were obtained from the vertex of the skull through the skull base. Please note that all CT scans at this facility use dose modulation, iterative reconstruction, and/or weight-based dosing when appropriate to reduce radiation dose to as low as reasonably achievable. FINDINGS: The brain shows no sign of mass lesion, mass effect, hemorrhage, or edema. The ventricles and sulci are normal in appearance for the patient`s age. The visualized portions of the orbits are normal in appearance. The osseous structures are normal in their appearance with no sign of abnormality in the skull base or calvarium. IMPRESSION: Normal unenhanced head CT. Please note that all CT scans at this facility use dose modulation, iterative reconstruction, and/or weight-based dosing when appropriate to reduce radiation dose to as low as reasonably achievable. Dictated by Ankit Ziegler MD @ 02/07/2021 3:14:41 PM (Electronically Signed)
[2021-02-07] MEDS ORDERED: HYDROmorphone 0.5 MG/0.5 ML Syringe IVPUSH ONE (15:32)
[2021-02-07 15:51] VITALS: BP 145/78; PULSE 85
== END 2021-02-07 16:03 | disposition home or self-care (01) ==
LOC: JP.ED 12:18
DX: G44.1 Vascular headache, not elsewhere classified (principal); J45.909 Unspecified asthma, uncomplicated; F17.210 Nicotine dependence, cigarettes, uncomplicated; Z88.8 Allergy status to other drugs, medicaments and biological substances; Z79.84 Long term (current) use of oral hypoglycemic drugs; Z79.899 Other long term (current) drug therapy
CPT/HCPCS: 70450; 96374; 96375; 99284; J0780; J1170; J1200; J1885; J7030

== ENCOUNTER 2021-09-11 19:08 | Emergency (ER) | payer BC, MEDICAID ==
[2021-09-11 20:38] VITALS: BP 135/82; PULSE 96
[2021-09-11] MEDS ORDERED: Cefdinir 300 MG Cap PO ONE (21:07)
== END 2021-09-11 21:28 | disposition home or self-care (01) ==
LOC: JP.ED 19:08
DX: H66.93 Otitis media, unspecified, bilateral (principal); H60.93 Unspecified otitis externa, bilateral; F17.210 Nicotine dependence, cigarettes, uncomplicated; E66.9 Obesity, unspecified; Z68.30 Body mass index [BMI] 30.0-30.9, adult; Z91.048 Other nonmedicinal substance allergy status; Z79.899 Other long term (current) drug therapy; Z79.84 Long term (current) use of oral hypoglycemic drugs
CPT/HCPCS: 99281; 99282; A9270

== ENCOUNTER 2022-02-03 13:30 | Emergency (ER) | payer OTHER, BC ==
[2022-02-03 14:16] VITALS: BP 156/91; PULSE 110
[2022-02-03] MEDS ORDERED: Ketorolac 30 MG/ML SDV IM ONE (14:26)
== END 2022-02-03 15:52 | disposition home or self-care (01) ==
LOC: JP.ED 13:30
DX: G44.319 Acute post-traumatic headache, not intractable (principal); M25.511 Pain in right shoulder; M25.561 Pain in right knee; M54.2 Cervicalgia; M25.551 Pain in right hip; M25.521 Pain in right elbow; E66.9 Obesity, unspecified; Z68.42 Body mass index [BMI] 45.0-49.9, adult; Z91.048 Other nonmedicinal substance allergy status; Z79.899 Other long term (current) drug therapy; Z79.84 Long term (current) use of oral hypoglycemic drugs; V49.50XA Passenger injured in collision with unspecified motor vehicles in traffic accident, initial encounter; Y92.410 Unspecified street and highway as the place of occurrence of the external cause
CPT/HCPCS: 70450; 72125; 73030; 73070; 73502; 73560; 76377; 96372; 99284; J1885

== ENCOUNTER 2022-07-09 20:00 | Emergency (ER) | payer BC ==
[2022-07-09 20:13] VITALS: BP 141/82
[2022-07-09] MEDS ORDERED: Albuterol/Ipratropium 3.0-0.5 MG/3 ML Neb Soln NEB ONE (20:22)
[2022-07-09 20:33] LABS: BASOPHILS ABSOLUTE AUTO 0.03 K/uL (0.00-0.10); BASOPHILS PERCENT AUTO 0.3 % (0.1-1.3); HEMATOCRIT 36.7 % (34.3-46.0); HEMOGLOBIN 12.3 g/dL (11.2-15.5); IMMATURE GRAN ABSOLUTE AUTO 0.06 K/uL (0.00-0.23); IMMATURE GRAN PERCENT AUTO 0.5 % (0.0-0.7); LYMPHOCYTES ABSOLUTE AUTO 3.76 K/uL (0.8-3.3); LYMPHOCYTES PERCENT AUTO 32.8 % (11.4-47.7); MEAN CORPUSCULAR HEMOGLOBIN 28.2 pg (31.6-35.5); MEAN CORPUSCULAR HGB CONC 33.5 g/dL (31.6-35.5); MEAN CORPUSCULAR VOLUME 84.2 fL (81.4-99.0); MONOCYTES ABSOLUTE AUTO 0.88 K/uL (0.20-0.90); MONOCYTES PERCENT AUTO 7.7 % (3.3-12.6); NEUTROPHILS ABSOLUTE AUTO 6.73 K/uL (1.0-7.6); NEUTROPHILS PERCENT AUTO 58.7 % (40.0-78.1); PLATELET COUNT,PLT 243 K/uL (130-375); RED BLOOD CELL COUNT 4.36 M/uL (3.77-5.24); WHITE BLOOD CELL COUNT,WBC 11.5 K/uL (3.2-11.0)
[2022-07-09 20:54] LABS: A/G RATIO 0.9 (1.2-2.2); ALANINE AMINOTRANSFERASE,ALT 29 U/L (12-78); ALBUMIN 3.3 g/dL (3.4-5.0); ALKALINE PHOSPHATASE 85 U/L (46-116); ASPARTATE AMNIOTRANSFERASE,AST 18 U/L (15-37); BILIRUBIN TOTAL 0.4 mg/dL (0.2-1.0); BLOOD UREA NITROGEN,BUN 12 mg/dL (7-18); C-REACTIVE PROTEIN 2.17 mg/dL (0.0-0.3); CALCIUM 8.8 mg/dL (8.5-10.1); CARBON DIOXIDE,CO2 26 mmol/L (21-32); CHLORIDE,CL 101 mmol/L (100-108); CREATININE 0.7 mg/dL (0.6-1.0); EST CRCL DRUG DOSING (CG) 107.67 mL/min; ESTIMATED GFR 121 mL/min (>60); GLUCOSE RANDOM 107 mg/dL (74-106); POTASSIUM,K 3.7 mmol/L (3.6-5.2); PROTEIN TOTAL,TP 7.1 g/dL (6.4-8.2); SODIUM,NA 136 mmol/L (140-148)
[2022-07-09 21:02] LABS: ANION GAP 12.7 mmol/L (5.0-14.0)
[2022-07-09 21:05] VITALS: PULSE 94
== END 2022-07-09 21:25 | disposition home or self-care (01) ==
LOC: JP.ED 20:00
DX: J20.8 Acute bronchitis due to other specified organisms (principal); E66.9 Obesity, unspecified; J45.909 Unspecified asthma, uncomplicated; Z88.8 Allergy status to other drugs, medicaments and biological substances; Z79.84 Long term (current) use of oral hypoglycemic drugs; Z68.34 Body mass index [BMI] 34.0-34.9, adult
CPT/HCPCS: 36415; 71046; 71046-26; 80053; 85025; 86140; 94640; 99285; J7620

== ENCOUNTER 2022-08-09 05:28 | Day surgery (SDC) | payer BC ==
[2022-08-09 05:55] LABS: HEMATOCRIT 37.2 % (34.3-46.0); HEMOGLOBIN 12.5 g/dL (11.2-15.5); MEAN CORPUSCULAR HEMOGLOBIN 28.3 pg (31.6-35.5); MEAN CORPUSCULAR HGB CONC 33.6 g/dL (31.6-35.5); MEAN CORPUSCULAR VOLUME 84.4 fL (81.4-99.0); RED BLOOD CELL COUNT 4.41 M/uL (3.77-5.24); WHITE BLOOD CELL COUNT,WBC 11.6 K/uL (3.2-11.0)
[2022-08-09] MEDS ORDERED: Dextrose 5%-Lactated Ringers 1,000 ML IV SCH (06:00)
[2022-08-09 06:16] LABS: A/G RATIO 0.8 (1.2-2.2); ALANINE AMINOTRANSFERASE,ALT 27 U/L (12-78); ALBUMIN 3.2 g/dL (3.4-5.0); ALKALINE PHOSPHATASE 67 U/L (46-116); ASPARTATE AMNIOTRANSFERASE,AST 17 U/L (15-37); BILIRUBIN TOTAL 0.6 mg/dL (0.2-1.0); BLOOD UREA NITROGEN,BUN 12 mg/dL (7-18); CALCIUM 8.7 mg/dL (8.5-10.1); CARBON DIOXIDE,CO2 26 mmol/L (21-32); CHLORIDE,CL 102 mmol/L (100-108); CREATININE 0.6 mg/dL (0.6-1.0); EST CRCL DRUG DOSING (CG) 125.61 mL/min; ESTIMATED GFR 125 mL/min (>60); GLUCOSE RANDOM 95 mg/dL (74-106); MAGNESIUM 1.9 mg/dL (1.8-2.4); PHOSPHORUS 3.8 mg/dL (2.5-4.9); POTASSIUM,K 3.8 mmol/L (3.6-5.2); PROTEIN TOTAL,TP 7.1 g/dL (6.4-8.2); SODIUM,NA 138 mmol/L (140-148)
[2022-08-09] MEDS ORDERED: cefOXitin 2 GM in Sodium Chloride 0.9% 50 ML IV ONE (06:30)
[2022-08-09] MEDS ORDERED: Indocyanine Green 25 MG SDV IV ONE (06:30)
[2022-08-09] MEDS ORDERED: Albuterol/Ipratropium 3.0-0.5 MG/3 ML Neb Soln NEB ONE (06:30)
[2022-08-09 06:48] LABS: ANION GAP 13.8 mmol/L (5.0-14.0)
[2022-08-09] MEDS ORDERED: Lidocaine 1% with EPINEPHrine 1:100,000 50 ML MDV ONE (06:48)
[2022-08-09] MEDS ORDERED: Bupivacaine 0.5% 50 ML MDV ONE (06:48)
[2022-08-09] MEDS ORDERED: Rocuronium 50 MG/5 ML Vial ONE (06:57)
[2022-08-09] MEDS ORDERED: fentaNYL 250 MCG/5 ML SDV ONE ×2 (06:57→07:36)
[2022-08-09] MEDS ORDERED: Ondansetron 4 MG/2 ML SDV ONE (06:57)
[2022-08-09] MEDS ORDERED: Dexamethasone 4 MG/ML SDV ONE (06:57)
[2022-08-09] MEDS ORDERED: Neostigmine Methylsulfate 1 MG/ML 5 ML Syringe ONE (06:57)
[2022-08-09] MEDS ORDERED: Succinylcholine 200 MG/10 ML MDV ONE (06:57)
[2022-08-09] MEDS ORDERED: Propofol 200 MG/20 ML SDV ONE (06:57)
[2022-08-09] MEDS ORDERED: Glycopyrrolate 0.2 MG/ML 5 ML MDV ONE (06:57)
[2022-08-09] MEDS ORDERED: Ketamine 500 MG/5 ML MDV IV SCH (07:30)
[2022-08-09] MEDS ORDERED: Ketamine 17 MG in Sodium Chloride 0.9% 19.83 ML IV SCH (07:30)
[2022-08-09] MEDS ORDERED: Lactated Ringers 1,000 ML ONE (08:17)
[2022-08-09] MEDS ORDERED: hydrOXYzine HCl 50 MG/ML SDV IM ONE (09:11)
[2022-08-09] MEDS ORDERED: HYDROmorphone 0.5 MG/0.5 ML Syringe IVPUSH PRN (09:40)
[2022-08-09 10:56] VITALS: BP 122/65; PULSE 98
[2022-08-09] MEDS ORDERED: HYDROmorphone 2 MG Tab PO PRN (11:15)
== END 2022-08-09 11:50 ==
LOC: JP.SDS 05:28 → UNDOADMIN 05:28 → JP.SDSSCHI 05:28 → EDSTATUS 08:00 → UNDODISIN 11:50 → JP.SDS 11:50
PROVIDERS: ATTEND Surgery
DX: K81.1 Chronic cholecystitis (principal); J44.9 Chronic obstructive pulmonary disease, unspecified; F17.200 Nicotine dependence, unspecified, uncomplicated; Z91.048 Other nonmedicinal substance allergy status
CPT/HCPCS: 36415; 47562; 80053; 83735; 84100; 84703; 85027; 88304; 94640; A9270; J0131; J0171; J0330; J0694; J1100; J1170; J2405; J2704; J2710; J2795; J3010; J3410; J3490; J7120; J7121; J7620

== ENCOUNTER 2023-08-11 08:04 | Emergency (ER) | payer BC ==
[2023-08-11 08:11] VITALS: BP 140/85; PULSE 99
== END 2023-08-11 09:37 | disposition home or self-care (01) ==
LOC: JP.ED 08:04
DX: M25.561 Pain in right knee (principal); F17.210 Nicotine dependence, cigarettes, uncomplicated; K21.9 Gastro-esophageal reflux disease without esophagitis; J45.909 Unspecified asthma, uncomplicated; Z91.048 Other nonmedicinal substance allergy status; Z79.51 Long term (current) use of inhaled steroids; Z79.899 Other long term (current) drug therapy; Z79.84 Long term (current) use of oral hypoglycemic drugs; Z86.16 Personal history of COVID-19; Z90.49 Acquired absence of other specified parts of digestive tract
CPT/HCPCS: 73562-RT; 99283

== ENCOUNTER 2024-05-25 23:27 | Emergency (ER) | payer BC ==
[2024-05-26 00:22] VITALS: BP 139/75; PULSE 83
[2024-05-26] MEDS: Aspirin 81 MG Tab.Chew PO ONE (00:29)
[2024-05-26 00:33] LABS: BASOPHILS ABSOLUTE AUTO 0.05 K/uL (0.00-0.10); BASOPHILS PERCENT AUTO 0.4 % (0.1-1.3); HEMATOCRIT 36.1 % (34.3-46.0); HEMOGLOBIN 11.7 g/dL (11.2-15.5); IMMATURE GRAN ABSOLUTE AUTO 0.05 K/uL (0.00-0.23); IMMATURE GRAN PERCENT AUTO 0.4 % (0.0-0.7); LYMPHOCYTES ABSOLUTE AUTO 3.64 K/uL (0.8-3.3); LYMPHOCYTES PERCENT AUTO 28.9 % (11.4-47.7); MEAN CORPUSCULAR HEMOGLOBIN 27.5 pg (31.6-35.5); MEAN CORPUSCULAR HGB CONC 32.4 g/dL (31.6-35.5); MEAN CORPUSCULAR VOLUME 84.9 fL (81.4-99.0); MONOCYTES ABSOLUTE AUTO 0.97 K/uL (0.20-0.90); MONOCYTES PERCENT AUTO 7.7 % (3.3-12.6); NEUTROPHILS ABSOLUTE AUTO 7.87 K/uL (1.0-7.6); NEUTROPHILS PERCENT AUTO 62.6 % (40.0-78.1); PLATELET COUNT,PLT 241 K/uL (130-375); RED BLOOD CELL COUNT 4.25 M/uL (3.77-5.24); WHITE BLOOD CELL COUNT,WBC 12.6 K/uL (3.2-11.0)
[2024-05-26 00:55] LABS: A/G RATIO 0.9 (1.2-2.2); ALANINE AMINOTRANSFERASE,ALT 21 U/L (12-78); ALBUMIN 3.1 g/dL (3.4-5.0); ALKALINE PHOSPHATASE 81 U/L (46-116); ANION GAP 9.3 mmol/L (5.0-14.0); ASPARTATE AMNIOTRANSFERASE,AST 12 U/L (15-37); BILIRUBIN TOTAL 0.3 mg/dL (0.2-1.0); BLOOD UREA NITROGEN,BUN 11 mg/dL (7-18); CALCIUM 9.1 mg/dL (8.5-10.1); CARBON DIOXIDE,CO2 28 mmol/L (21-32); CHLORIDE,CL 104 mmol/L (100-108); CREATININE 0.7 mg/dL (0.6-1.0); EST CRCL DRUG DOSING (CG) 105.74 mL/min; ESTIMATED GFR 119 mL/min (>60); GLUCOSE RANDOM 141 mg/dL (74-106); POTASSIUM,K 4.1 mmol/L (3.6-5.2); PROTEIN TOTAL,TP 6.6 g/dL (6.4-8.2); SODIUM,NA 141 mmol/L (140-148)
== END 2024-05-26 01:48 | disposition home or self-care (01) ==
LOC: JP.ED 23:27
DX: R07.89 Other chest pain (principal); J45.909 Unspecified asthma, uncomplicated; K21.9 Gastro-esophageal reflux disease without esophagitis; F17.210 Nicotine dependence, cigarettes, uncomplicated; Z91.048 Other nonmedicinal substance allergy status; Z79.51 Long term (current) use of inhaled steroids; Z79.899 Other long term (current) drug therapy; Z86.16 Personal history of COVID-19
CPT/HCPCS: 36415; 71046; 71046-26; 80053; 84484; 84703; 85025; 93005; 93010; 99283; 99285; A9270-GY